=== PATIENT | male | born 1970 | race Caucasian/White ===

== ENCOUNTER 2019-01-08 01:28 | Emergency (ER) | payer SELFPAY ==
--- NOTE | 2019-01-08 01:40 | PDOC ---
History of Present Illness - General Stated Complaint: INTOXICATION - History of Present Illness Initial Comments: The pt is a 49M w/ no reported PMH who presents for evaluation by [facility] for evaluation of intoxication. The pt denies any pain or complaints. Denies falls or trauma. Reports drinking 5-6 beers 5-6 days per week. Denies withdraw symptoms or seizures. Denies recent illness, fevers/chills, chest pain, BORJA, vision changes, trouble breathing, abdominal pain, N/V/C/D PMH: Denies PSH: Denies Meds: Denies Allergies: Denies SH: Denies tobacco use, 5-6 beers 5-6 days/week, denies illicit drug use PMD: Denies 01/08/19 04:07 Past History - Past Medical History Allergies/Adverse Reactions: Allergies Allergy/AdvReac Type Severity Reaction Status Date / Time No Known Allergies Allergy Verified 01/08/19 02:05 Review of Systems - Review of Systems Able to Perform ROS?: Yes Comments:: GENERAL/CONSTITUTIONAL: No fever or chills. No weakness HEAD, EYES, EARS, NOSE AND THROAT: No change in vision. No ear pain or discharge. No sore throat CARDIOVASCULAR: No chest pain or shortness of breath RESPIRATORY: Denies cough, hemoptysis GASTROINTESTINAL: No nausea, vomiting, diarrhea or constipation GENITOURINARY: No dysuria, frequency, or change in urination MUSCULOSKELETAL: No joint or muscle swelling or pain. No neck or back pain SKIN: No rash NEUROLOGIC: No headache, vertigo, loss of consciousness, or change in strength/ sensation ENDOCRINE: No increased thirst. No abnormal weight change HEMATOLOGIC/LYMPHATIC: No anemia, easy bleeding, or history of blood clots ALLERGIC/IMMUNOLOGIC: No hives or skin allergy 01/08/19 01:33 Is the patient limited Georgian proficient: No *Physical Exam - Vital Signs 01/08/19 01:41 - Physical Exam Comments: GENERAL: Awake, alert, and oriented to person/place/time, in no acute distress HEAD: No signs of trauma, normocephalic, atraumatic EYES: PERRLA, EOMI, sclera anicteric, conjunctiva clear ENT: Hearing grossly normal, nares patent, oropharynx clear without exudates. No uvular deviation. Moist mucosa LUNGS: No distress, speaks in full sentences, clear to auscultation bilaterally HEART: Regular rate and rhythm, normal S1 and S2, no murmurs appreciated, peripheral pulses normal and equal bilaterally ABDOMEN: Soft, nontender, normoactive bowel sounds. No guarding, no rebound EXTREMITIES: Normal inspection, Normal range of motion, no edema. No clubbing or cyanosis NEUROLOGICAL: Cranial nerves II through XII grossly intact. Normal speech, ambulating in ED, no focal sensorimotor deficits SKIN: Warm, Dry 01/08/19 01:34 Medical Decision Making - Medical Decision Making Pt ambulating in ED, non-slurred speech, and oriented x3, following commands Plan for obs, will reassess Pt eloped prior to reassessment 01/08/19 04:14 *DC/Admit/Observation/Transfer Diagnosis at time of Disposition: Alcohol intoxication Qualifiers: Complication of substance-induced condition: uncomplicated Qualified Code(s): F10.920 - Alcohol use, unspecified with intoxication, uncomplicated - Discharge Dispostion Disposition: ELOPED Condition at time of disposition: Fair Decision to Admit order: No - Referrals - Patient Instructions - Post Discharge Activity
--- NOTE | 2019-01-08 02:01 | PDOC ---
Attending Attestation - Resident Resident Name: Geoffrey Anguiano - ED Attending Attestation I have performed the following: I have examined & evaluated the patient, The case was reviewed & discussed with the resident, I agree w/resident's findings & plan, Exceptions are as noted - HPI HPI: 01/08/19 02:59 49M BIBEMS in police custody for acute etoh intox and disruptive behavior. Pt endorses drinking alcohol tonight, denies co-ingestants. - Physicial Exam PE: 01/08/19 03:00 Agree with exam as documented by resident - Medical Decision Making 01/08/19 03:00 Patient clinically intoxicated Atraumatic Dispo per clinical course Observe, re-eval 01/08/19 03:32 On re-assessment pt found to have eloped
[2019-01-08 02:03] VITALS: BP 160/90; PULSE 102; TEMP 98.1; BMI 26.5
== END 2019-01-08 04:41 | disposition left against medical advice (07) ==
LOC: JER 01:28
DX: F10.120 Alcohol abuse with intoxication, uncomplicated (principal)
CPT/HCPCS: 99282-25

== ENCOUNTER 2024-12-21 15:02 | Emergency (ER) | payer SELFPAY ==
[2024-12-21 15:29] VITALS: RESP 18; TEMP 99.3; BMI 30.7
[2024-12-21] MEDS ORDERED: LORazepam 2 MG/ML SDV VIAL ONE (15:54)
[2024-12-21] MEDS: LACTATED RINGERS SOLUTION 1,000 ML/1,000 ML INFUS.BAG IV SCH (15:55)
[2024-12-21 15:56] LABS: ABSOLUTE IMMATURE GRANULOCYTES 0.01 x10^3/uL (0.0-0.031); BASOPHILS # 0.02 x10^3/uL (0.01-0.08); EOSINOPHIL % 0.8 % (0.8-7.0); EOSINOPHILS # 0.06 x10^3/uL (0.04-0.54); HEMATOCRIT 43.7 % (40.1-51.0); HEMOGLOBIN 15.3 g/dL (13.7-17.5); MEAN CELL VOLUME 86.9 fl (79.0-92.2); MEAN PLT VOLUME 10.6 fl (9.4-12.4); MONOCYTE # 0.55 x10^3/uL (0.30-0.82); MONOCYTE % 7.7 % (5.3-12.2); PLATELET COUNT 158 x10^3/uL (163-337); RDW 12.1 % (12.2-16.1)
[2024-12-21 16:16] LABS: INR 1.19 (0.83-1.09); PROTHROMBIN TIME (PATIENT) 13.2 SEC (9.7-13.0)
[2024-12-21 16:18] LABS: ACTIVATED PTT 34.3 SECONDS (25.2-36.5)
[2024-12-21 16:26] VITALS: BP 179/100; PULSE 99
[2024-12-21 16:37] LABS: ALBUMIN 4.2 g/dl (3.4-5.0); BILIRUBIN,TOTAL 1.4 mg/dl (0.2-1); CALCIUM 8.8 mg/dl (8.5-10.1); CREATININE 0.7 mg/dl (0.6-1.3); MAGNESIUM 1.9 mg/dL (1.8-2.4); POTASSIUM 3.7 mmol/L (3.5-5.1); TOT PROT 7.4 g/dl (6.4-8.2)
[2024-12-21 19:35] LABS: HCV DIAGNOSTIC IN-HOUSE W/RFLX NON-REACTIVE (NONREACTIVE)
[2024-12-21 19:36] LABS: HIV INTERPRETATION NEGATIVE (NEGATIVE)
== END 2024-12-21 17:07 | disposition home or self-care (01) ==
LOC: FER 15:02
PROC: 3E033GC Introduction of Other Therapeutic Substance into Peripheral Vein, Percutaneous Approach (ICD-10-PCS; principal; 2024-12-21)
DX: F10.20 Alcohol dependence, uncomplicated (principal); Y90.9 Presence of alcohol in blood, level not specified; R04.0 Epistaxis; I10 Essential (primary) hypertension; R00.0 Tachycardia, unspecified
CPT/HCPCS: 36415; 80053; 83735; 85025; 85610; 85730; 86803; 86850; 86900; 86901; 87389; 99284-25